=== PATIENT | female | born 1995 | race Hispanic/Latino ===

== ENCOUNTER 2017-09-22 07:59 | Emergency (ER) | payer OTHER ==
[2017-09-22 08:22] VITALS: RESP 18; TEMP 98.5; O2SAT 99
--- NOTE | 2017-09-22 09:39 | RAD ---
PROCEDURE: Right Knee Radiographs. HISTORY: right knee pain COMPARISON: None. FINDINGS: BONES: Normal. No fracture. JOINTS: On the sunrise view, there is lateral patellar tilt. No osteoarthritis. JOINT EFFUSION: None. OTHER FINDINGS: None. IMPRESSION: No fracture, lytic lesion or significant appearing hypertrophic arthrosis Lateral patellar tilt is noted. If there is any concern for potential patellar chondromalacia, consider MRI of the right knee
--- NOTE | 2017-09-22 10:45 | ED PDOC ---
Lower Extremity Pain/Injury Time Seen by Provider: 09/22/17 08:25 Chief Complaint (Nursing): Lower Extremity Problem/Injury Chief Complaint (Provider): Right Knee History Per: Patient History/Exam Limitations: no limitations Onset/Duration Of Symptoms: Days (x2) Current Symptoms Are (Timing): Still Present Additional Complaint(s): 21 y/o female with no significant pmhx, who presents to the ED for evaluation of right knee pain x2 days. Patient states she was doing step offs on a bench when she fell and thinks she twisted her right knee, but states she didnt land on the knee. She reports she was ambulatory yesterday and was able to bear weight. She says he applied ice to the knee and took Advil yesterday, but currently has pain and swelling when she walks. She denies any other injuries. PMD: [facility] Past Medical History Reviewed: Historical Data, Nursing Documentation, Vital Signs Vital Signs: Last Vital Signs Temp 98.5 F 09/22/17 08:18 Pulse 100 H 09/22/17 08:18 Resp 18 09/22/17 08:18 BP 136/97 H 09/22/17 08:18 Pulse Ox 99 09/22/17 08:18 - Medical History PMH: No Chronic Diseases - Surgical History Surgical History: No Surg Hx - Family History Family History: States: Unknown Family Hx - Allergies Allergies/Adverse Reactions: Allergies Allergy/AdvReac Type Severity Reaction Status Date / Time No Known Allergies Allergy Verified 09/22/17 08:18 Review of Systems ROS Statement: Except As Marked, All Systems Reviewed And Found Negative Musculoskeletal: Positive for: Leg Pain (right knee) Physical Exam - Reviewed Nursing Documentation Reviewed: Yes Vital Signs Reviewed: Yes - Physical Exam Appears: Positive for: Non-toxic, No Acute Distress Extremity: Positive for: Tenderness (tenderness and swelling to the anterior and medial aspect of the knee) Neurologic/Psych: Positive for: Alert, Oriented - ECG O2 Sat by Pulse Oximetry: 99 (RA) Pulse Ox Interpretation: Normal Medical Decision Making Medical Decision Makin:15 Initial Impression: Knee injury and pain. Differential diagnoses include, but are not limited to knee fracture, dislocation, and ligamental injury. Plan: --Right Knee X-Ray 3 views --Reevaluation Report Date : 09/22/2017 09:37:47 PROCEDURE: Right Knee Radiographs. HISTORY: right knee pain COMPARISON: None. FINDINGS: BONES: Normal. No fracture. JOINTS: On the sunrise view, there is lateral patellar tilt. No osteoarthritis. JOINT EFFUSION: None. OTHER FINDINGS: None. IMPRESSION: No fracture, lytic lesion or significant appearing hypertrophic arthrosis Lateral patellar tilt is noted. If there is any concern for potential patellar chondromalacia, consider MRI of the right knee Scribe Attestation: Documented by Marlon Avila, acting as a scribe for Natacha Santiago MD. Provider Scribe Attestation: All medical record entries made by the Scribe were at my direction and personally dictated by me. I have reviewed the chart and agree that the record accurately reflects my personal performance of the history, physical exam, medical decision making, and the department course for this patient. I have also personally directed, reviewed, and agree with the discharge instructions and disposition. Disposition - Clinical Impression Clinical Impression: Knee pain, right - Patient ED Disposition Is Patient to be Admitted: No Doctor Will See Patient In The: Office Counseled Patient/Family Regarding: Studies Performed, Diagnosis, Need For Followup - Disposition Referrals: Eric Patino III, MD [Staff Provider] - Disposition: Routine/Home Disposition Time: 10:00 Condition: GOOD Additional Instructions: Take advil for pain. Follow up with your PCP in 2-3 days. Instructions: Knee Pain (DC)
[2017-09-22 11:25] VITALS: BP 130/90; PULSE 80
== END 2017-09-22 11:24 | disposition home or self-care (01) ==
LOC: H.ER 07:59
DX: S89.91XA Unspecified injury of right lower leg, initial encounter (principal); W19.XXXA Unspecified fall, initial encounter; Y93.B9 Activity, other involving muscle strengthening exercises